=== PATIENT | female | born 1960 | race Caucasian/White ===

== ENCOUNTER 2018-07-11 08:27 | Emergency (ER) | payer OTHER, BC ==
[~2018-07-11] VITALS: Ht 162.6 cm; Wt 61.2 kg
[2018-07-11] MEDS ORDERED: [UNRECOGNIZED DRUG - OTHER] (09:05)
[2018-07-11] MEDS ORDERED: PROGESTERONE (09:06)
[2018-07-11] MEDS ORDERED: ZERTEC (09:06)
[2018-07-11] MEDS ORDERED: HYDR1TAB94 PO (09:47)
[2018-07-11] MEDS ORDERED: IBUP800 PO (09:47)
[2018-07-11] MEDS ORDERED: Cyclobenzaprine5 MG PO (09:47)
== END 2018-07-11 10:25 | disposition home or self-care (01) ==
LOC: ER 08:27
DX: M53.3 Sacrococcygeal disorders, not elsewhere classified (principal); Z88.5 Allergy status to narcotic agent; Z79.899 Other long term (current) drug therapy; Z87.891 Personal history of nicotine dependence

== ENCOUNTER → 2020-04-03 | Outpatient (CLI) | payer BC ==
[~2020-04-03] MED LIST: Cyclobenzaprine5 MG PO; HYDR1TAB94 PO; IBUP800 PO; PROGESTERONE; ZERTEC; [UNRECOGNIZED DRUG - OTHER]
[2020-04-06 07:10] LABS: CORONAVIRUS (COVID19) CSH-NRL Positive (Negative)
== END | disposition home or self-care (01) ==
LOC: LAB SHORT 11:47 → LAB 11:47
PROVIDERS: Physician Assistant Medical
DX: U07.1 COVID-19 (principal)
CPT/HCPCS: U0003

== ENCOUNTER → 2020-11-27 | Outpatient (CLI) | payer BC | LOC: LAB 11:40 → LAB SHORT 11:40 | DX: D48.5 Neoplasm of uncertain behavior of skin (principal) | CPT/HCPCS: 88305 ==

== ENCOUNTER 2023-05-17 07:26 | Emergency (ER) | payer BC ==
[~2023-05-17] VITALS: Ht 165.1 cm; Wt 54.4 kg
[2023-05-17 07:49] VITALS: BP 112/74
== END 2023-05-17 08:50 | disposition home or self-care (01) ==
LOC: ER 07:26
DX: J06.9 Acute upper respiratory infection, unspecified (principal); Z88.5 Allergy status to narcotic agent; Z79.899 Other long term (current) drug therapy; Z87.891 Personal history of nicotine dependence
CPT/HCPCS: 99283